=== PATIENT | male | born 1985 | race Caucasian/White ===

== ENCOUNTER 2018-03-02 01:38 | Emergency (ER) | payer BC ==
[~2018-03-02] VITALS: Ht 175.3 cm; Wt 68.0 kg
[2018-03-02] MEDS ORDERED: AUVI-Q0.1 MG/0.1 (01:48)
[2018-03-02] MEDS ORDERED: QNASL CHILDREN4.9 GM (01:49)
[2018-03-02] MEDS ORDERED: MEDROL DOSPAK21 TA1 (01:49)
[2018-03-02] MEDS ORDERED: PULMICORT0.5 MG/22 (01:50)
[2018-03-02] MEDS ORDERED: VENTOLIN HFA 1818 GM (01:50)
[2018-03-02] MEDS ORDERED: PEPCID20 MG (01:51)
[2018-03-02] MEDS ORDERED: DIPHENHIST50 MG (01:51)
[2018-03-02] MEDS ORDERED: ZYRTEC10 M4 (01:51)
[2018-03-02] MEDS ORDERED: [UNRECOGNIZED DRUG - OTHER] (01:52)
[2018-03-02 02:30] LABS: URINE BILIRUBIN NEGATIVE (Negative); URINE BLOOD NEGATIVE (Negative); URINE CLARITY CLEAR; URINE COLOR YELLOW; URINE GLUCOSE-RANDOM NEGATIVE (Negative); URINE KETONES NEGATIVE (Negative); URINE LEUKOCYTES-REFLEX NEGATIVE (Negative); URINE NITRITE-REFLEX NEGATIVE (Negative); URINE PROTEIN NEGATIVE (Negative); URINE UROBILINOGEN 0.2 E.U./dl (0.2-1.0)
[2018-03-02 02:32] LABS: ABSOLUTE BASOPHILS 0.1 thou/uL (0.0-0.2); ABSOLUTE EOSINOPHILS 0.2 thou/uL (0.0-0.7); ABSOLUTE LYMPHOCYTES 3.5 thou/uL (0.8-5.3); ABSOLUTE NEUTROPHILS 10.3 thou/uL (1.6-8.1); BASOPHILS 0.7 %; EOSINOPHILS 1.1 %; HEMATOCRIT 38.7 % (42.0-52.0); HEMOGLOBIN 12.2 gm/dL (14.0-18.0); LYMPHOCYTES 23.3 %; MCH 23.7 pg (26.0-34.0); MCHC 31.6 g/dL (28.0-37.0); MCV 74.8 fL (80.0-100.0); MONOCYTES 6.4 %; MPV 9.6 fl. (7.2-11.1); NUCLEATED RBCS 0 /100WBC; PLATELET COUNT* 339 thou/uL (150-400); POLYS 68.5 %; RBC 5.17 mil/uL (4.50-6.00); RDW-CV 16.2 % (10.5-14.5)
[2018-03-02 02:37] LABS: AMP/METHAMP Negative (Negative); BARBITURATES Negative (Negative); BENZODIAZEPINES Negative (Negative); COCAINE Negative (Negative); METHADONE Negative (Negative); OPIATES Negative (Negative); PCP Negative (Negative); THC Negative (Negative)
[2018-03-02 02:43] LABS: CALCIUM 9.4 mg/dL (8.5-10.1); POTASSIUM 3.1 mmol/L (3.5-5.1)
[2018-03-02 02:44] LABS: ALCOHOL < 10 mg/dL (<10); SALICYLATE < 2.8 mg/dL (2.8-20.0)
[2018-03-02 02:45] LABS: ACETAMINOPHEN < 2 ug/mL (10-30)
[2018-03-02 02:47] LABS: ALBUMIN 4.8 g/dL (3.4-5.0); TOTAL BILIRUBIN 0.5 mg/dL (<0.1-1.0); TOTAL PROTEIN 7.9 g/dL (6.4-8.2)
[2018-03-02] MEDS ORDERED: ATIVAN1 MG PO (04:50)
[2018-03-02 05:00] VITALS: BP 130/72
[2018-03-03] MEDS ORDERED: HYDROXYZINE HCL50 MG PO (23:51)
== END 2018-03-02 05:00 | disposition home or self-care (01) ==
LOC: M.ERS 01:38
PROVIDERS: Emergency Medicine
DX: F41.9 Anxiety disorder, unspecified (principal); F41.0 Panic disorder [episodic paroxysmal anxiety]; J45.909 Unspecified asthma, uncomplicated; F32.9 Major depressive disorder, single episode, unspecified; Z91.012 Allergy to eggs; Z91.09 Other allergy status, other than to drugs and biological substances

== ENCOUNTER 2018-03-03 22:04 | Emergency (ER) | payer BC ==
[~2018-03-03] VITALS: Ht 175.3 cm; Wt 67.7 kg
[~2018-03-03 22:04] MED LIST: ATIVAN1 MG PO; AUVI-Q0.1 MG/0.1; DIPHENHIST50 MG; MEDROL DOSPAK21 TA1; PEPCID20 MG; PULMICORT0.5 MG/22; QNASL CHILDREN4.9 GM; VENTOLIN HFA 1818 GM; ZYRTEC10 M4; [UNRECOGNIZED DRUG - OTHER]
[2018-03-03 22:34] LABS: ABSOLUTE BASOPHILS 0.1 thou/uL (0.0-0.2); ABSOLUTE EOSINOPHILS 0.3 thou/uL (0.0-0.7); ABSOLUTE LYMPHOCYTES 1.7 thou/uL (0.8-5.3); ABSOLUTE MONOCYTES 0.5 thou/uL (0.0-1.2); ABSOLUTE NEUTROPHILS 6.8 thou/uL (1.6-8.1); BASOPHILS 0.8 %; HEMATOCRIT 37.3 % (42.0-52.0); HEMOGLOBIN 11.8 gm/dL (14.0-18.0); LYMPHOCYTES 17.7 %; MCH 23.6 pg (26.0-34.0); MCHC 31.6 g/dL (28.0-37.0); MCV 74.6 fL (80.0-100.0); MONOCYTES 5.8 %; MPV 9.4 fl. (7.2-11.1); NUCLEATED RBCS 0 /100WBC; PLATELET COUNT* 310 thou/uL (150-400); POLYS 72.7 %; RBC 5.01 mil/uL (4.50-6.00); RDW-CV 16.6 % (10.5-14.5); WBC 9.4 thou/uL (4.0-11.0)
[2018-03-03 22:40] LABS: CREATININE 0.9 mg/dL (0.6-1.3); POTASSIUM 3.4 mmol/L (3.5-5.1)
[2018-03-03 22:43] LABS: ACETAMINOPHEN < 2 ug/mL (10-30); ALCOHOL < 10 mg/dL (<10); SALICYLATE < 2.8 mg/dL (2.8-20.0)
[2018-03-03 22:45] LABS: ALBUMIN 4.3 g/dL (3.4-5.0); TOTAL BILIRUBIN 0.4 mg/dL (<0.1-1.0); TOTAL PROTEIN 7.4 g/dL (6.4-8.2)
[2018-03-03 23:35] LABS: URINE BILIRUBIN NEGATIVE (Negative); URINE BLOOD NEGATIVE (Negative); URINE CLARITY CLEAR; URINE COLOR YELLOW; URINE GLUCOSE-RANDOM NEGATIVE (Negative); URINE KETONES NEGATIVE (Negative); URINE LEUKOCYTES-REFLEX NEGATIVE (Negative); URINE NITRITE-REFLEX NEGATIVE (Negative); URINE PROTEIN NEGATIVE (Negative); URINE UROBILINOGEN 0.2 E.U./dl (0.2-1.0)
[2018-03-03 23:43] LABS: AMP/METHAMP Negative (Negative); BARBITURATES Negative (Negative); BENZODIAZEPINES Negative (Negative); COCAINE Negative (Negative); METHADONE Negative (Negative); OPIATES Negative (Negative); PCP Negative (Negative); THC Negative (Negative)
[2018-03-03] MEDS ORDERED: HYDROXYZINE HCL50 MG PO (23:51)
[2018-03-04] VITALS: BP 119/81
== END 2018-03-04 00:03 | disposition home or self-care (01) ==
LOC: M.ERS 22:04
PROVIDERS: Emergency Medicine Emergency Medical Services
DX: F41.9 Anxiety disorder, unspecified (principal); G56.01 Carpal tunnel syndrome, right upper limb; J45.909 Unspecified asthma, uncomplicated; F32.9 Major depressive disorder, single episode, unspecified; Z91.012 Allergy to eggs; Z91.018 Allergy to other foods; Z79.899 Other long term (current) drug therapy

== ENCOUNTER 2020-04-02 17:14 | Emergency (ER) | payer OTHER ==
[~2020-04-02] VITALS: Ht 175.3 cm; Wt 86.2 kg
[~2020-04-02 17:14] MED LIST changes: +HYDROXYZINE HCL50 MG PO
[2020-04-02] MEDS ORDERED: PREDNISONE 20 M20 M1 PO (17:54)
[2020-04-02 18:26] VITALS: BP 138/77
== END 2020-04-02 18:26 | disposition home or self-care (01) ==
LOC: M.ERS 17:14
DX: F41.0 Panic disorder [episodic paroxysmal anxiety] (principal); J45.909 Unspecified asthma, uncomplicated; Z91.012 Allergy to eggs; Z91.018 Allergy to other foods

== ENCOUNTER 2020-07-09 22:46 | Emergency (ER) | payer OTHER ==
[~2020-07-09] VITALS: Ht 172.7 cm; Wt 86.2 kg
[~2020-07-09 22:46] MED LIST changes: +PREDNISONE 20 M20 M1 PO
[2020-07-09 23:17] LABS: ABSOLUTE BASOPHILS 0.1 thou/uL (0.0-0.2); ABSOLUTE LYMPHOCYTES 1.8 thou/uL (0.8-5.3); ABSOLUTE MONOCYTES 0.5 thou/uL (0.0-1.2); ABSOLUTE NEUTROPHILS 7.8 thou/uL (1.6-8.1); BASOPHILS 0.8 %; EOSINOPHILS 0.4 %; HEMATOCRIT 47.5 % (42.0-52.0); HEMOGLOBIN 15.8 gm/dL (14.0-18.0); LYMPHOCYTES 17.5 %; MCH 28.2 pg (26.0-34.0); MCHC 33.3 g/dL (28.0-37.0); MCV 84.7 fL (80.0-100.0); MONOCYTES 5.3 %; MPV 9.1 fl. (7.2-11.1); NUCLEATED RBCS 0 /100WBC; PLATELET COUNT* 285 thou/uL (150-400); RBC 5.61 mil/uL (4.50-6.00); RDW-CV 14.1 % (10.5-14.5); WBC 10.2 thou/uL (4.0-11.0)
[2020-07-09 23:33] LABS: CALCIUM 9.6 mg/dL (8.5-10.1); CREATININE 1.1 mg/dL (0.6-1.3); POTASSIUM 3.5 mmol/L (3.5-5.1)
[2020-07-09 23:38] LABS: ALBUMIN 4.8 g/dL (3.4-5.0); TOTAL BILIRUBIN 0.8 mg/dL (<0.1-1.0)
[2020-07-09 23:48] LABS: SALICYLATE < 2.8 mg/dL (2.8-20.0)
[2020-07-09 23:49] LABS: ACETAMINOPHEN < 2 ug/mL (10-30); ALCOHOL < 10 mg/dL (<10)
[2020-07-10 00:27] LABS: AMP/METHAMP Negative (Negative); BARBITURATES Negative (Negative); BENZODIAZEPINES Negative (Negative); COCAINE Negative (Negative); METHADONE Negative (Negative); OPIATES Negative (Negative); PCP Negative (Negative); THC Negative (Negative)
[2020-07-10 00:28] LABS: URINE BILIRUBIN NEGATIVE (Negative); URINE BLOOD TRACE (Negative); URINE CLARITY CLEAR; URINE COLOR YELLOW; URINE GLUCOSE-RANDOM NEGATIVE (Negative); URINE KETONES NEGATIVE (Negative); URINE LEUKOCYTES-REFLEX NEGATIVE (Negative); URINE NITRITE-REFLEX NEGATIVE (Negative); URINE PROTEIN NEGATIVE (Negative); URINE SPECIFIC GRAVITY 1.015 (1.005-1.030); URINE UROBILINOGEN 0.2 E.U./dl (0.2-1.0)
[2020-07-10 08:55] VITALS: BP 139/85
== END 2020-07-10 09:00 ==
LOC: M.ERS 22:46
PROVIDERS: Emergency Medicine
DX: R45.851 Suicidal ideations (principal); Z20.822 Contact with and (suspected) exposure to COVID-19; F32.9 Major depressive disorder, single episode, unspecified; J45.909 Unspecified asthma, uncomplicated; F41.9 Anxiety disorder, unspecified; Z90.49 Acquired absence of other specified parts of digestive tract; Z91.012 Allergy to eggs; Z88.8 Allergy status to other drugs, medicaments and biological substances; Z91.018 Allergy to other foods

== ENCOUNTER 2020-10-23 00:29 | Emergency (ER) | payer OTHER ==
[~2020-10-23] VITALS: Ht 172.7 cm; Wt 79.4 kg
[2020-10-23 01:10] LABS: HEMATOCRIT 47.4 % (42.0-52.0); HEMOGLOBIN 16.3 gm/dL (14.0-18.0); MCH 29.3 pg (26.0-34.0); MCHC 34.3 g/dL (28.0-37.0); MCV 85.3 fL (80.0-100.0); MPV 9.3 fl. (7.2-11.1); RBC 5.56 mil/uL (4.50-6.00); RDW-CV 14.5 % (10.5-14.5); WBC 11.5 thou/uL (4.0-11.0)
[2020-10-23 01:17] LABS: CALCIUM 8.9 mg/dL (8.5-10.1); POTASSIUM 3.5 mmol/L (3.5-5.1)
[2020-10-23 01:27] LABS: TOTAL BILIRUBIN 0.6 mg/dL (<0.1-1.0); TOTAL PROTEIN 8.3 g/dL (6.4-8.2)
[2020-10-23 02:25] LABS: ALCOHOL < 10 mg/dL (<10); SALICYLATE < 2.8 mg/dL (2.8-20.0)
[2020-10-23 02:56] LABS: URINE BILIRUBIN NEGATIVE (Negative); URINE BLOOD NEGATIVE (Negative); URINE CLARITY CLEAR; URINE COLOR YELLOW; URINE GLUCOSE-RANDOM NEGATIVE (Negative); URINE KETONES NEGATIVE (Negative); URINE LEUKOCYTES NEGATIVE (Negative); URINE NITRITE NEGATIVE (Negative); URINE PROTEIN NEGATIVE (Negative); URINE SPECIFIC GRAVITY <= 1.005 (1.005-1.030); URINE UROBILINOGEN 0.2 E.U./dl (0.2-1.0)
[2020-10-23 03:03] LABS: AMP/METHAMP Negative (Negative); BARBITURATES Negative (Negative); BENZODIAZEPINES Negative (Negative); COCAINE Negative (Negative); METHADONE Negative (Negative); OPIATES Negative (Negative); PCP Negative (Negative); THC Negative (Negative)
[2020-10-23 03:06] LABS: ACETAMINOPHEN < 2 ug/mL (10-30)
[2020-10-23 13:05] VITALS: BP 135/92
== END 2020-10-23 13:10 ==
LOC: M.ERS 00:29
PROVIDERS: Personal Emergency Response Attendant
DX: R45.851 Suicidal ideations (principal); Z20.822 Contact with and (suspected) exposure to COVID-19; J45.909 Unspecified asthma, uncomplicated; F32.9 Major depressive disorder, single episode, unspecified; F41.9 Anxiety disorder, unspecified; Z90.89 Acquired absence of other organs; Z91.012 Allergy to eggs